=== PATIENT | female | born 1960 | race Caucasian/White ===

== ENCOUNTER → 2018-08-27 | Outpatient (CLI) | payer OTHER ==
[~2018-08-27] MED LIST: ACETAMINOPHEN325 M1 PO; ALPRAZOLAM 0.0.25 M1 PO; AUGMENTIN 875-1 EACH PO; CALCIUM 500+D1 EAC2 PO; CITRATE OF MAG296 ML PO; DULCOLAX5 MG PO; HYDROCODON-ACE1 EAC7 PO; HYDROCODON-ACE1 EACH PO; IBUPROFEN 200200 M1 PO; IBUPROFEN200 M2 PO; K-DUR 20 MEQ T20 MEQ PO; LOPERAMIDE 2 MG2 M1 PO; MAGNESIUM OXID200 MG PO; MELATONIN3 MG PO; MULTIVITAMINS1 EAC7 PO; PERCOCET 5-3251 EACH PO; ROCEPHIN 1 GM VL1 G1 IV; VITAMIN B-12500 MCG PO; VITCB500GO PO; XANAX 0.5 MG0.5 MG PO; ZOFRAN 4 MG ORAL4 MG DISSOLVE; ZOFRAN ODT4 MG PO; [UNRECOGNIZED DRUG - OTHER] PO
== END ==
LOC: HYPER 07:11
DX: T81.83XD Persistent postprocedural fistula, subsequent encounter (principal); L59.8 Other specified disorders of the skin and subcutaneous tissue related to radiation; L02.214 Cutaneous abscess of groin; L73.2 Hidradenitis suppurativa; F41.9 Anxiety disorder, unspecified; Z87.891 Personal history of nicotine dependence; Z86.718 Personal history of other venous thrombosis and embolism; Z85.048 Personal history of other malignant neoplasm of rectum, rectosigmoid junction, and anus; Z85.528 Personal history of other malignant neoplasm of kidney

== ENCOUNTER → 2018-09-10 | Outpatient (CLI) | payer OTHER | LOC: HYPER 07:05 | DX: T81.83XD Persistent postprocedural fistula, subsequent encounter (principal); L02.214 Cutaneous abscess of groin; L02.415 Cutaneous abscess of right lower limb; L59.8 Other specified disorders of the skin and subcutaneous tissue related to radiation; L73.2 Hidradenitis suppurativa; F41.9 Anxiety disorder, unspecified; Z87.891 Personal history of nicotine dependence; Z85.528 Personal history of other malignant neoplasm of kidney; Z85.048 Personal history of other malignant neoplasm of rectum, rectosigmoid junction, and anus; Z86.718 Personal history of other venous thrombosis and embolism; Y83.8 Other surgical procedures as the cause of abnormal reaction of the patient, or of later complication, without mention of misadventure at the time of the procedure ==

== ENCOUNTER → 2018-10-07 | Outpatient (CLI) | payer OTHER ==
[~2018-10-07] MED LIST changes: +NEURONTIN 300M300 M2 PO; +VITAMIN E400 UNIT PO
== END ==
LOC: HYPER 09-24 16:05
DX: T81.83XD Persistent postprocedural fistula, subsequent encounter (principal); L59.8 Other specified disorders of the skin and subcutaneous tissue related to radiation; L73.2 Hidradenitis suppurativa; L02.214 Cutaneous abscess of groin; L02.415 Cutaneous abscess of right lower limb; F41.9 Anxiety disorder, unspecified; Z87.891 Personal history of nicotine dependence; Z86.718 Personal history of other venous thrombosis and embolism; Z85.528 Personal history of other malignant neoplasm of kidney; Z85.048 Personal history of other malignant neoplasm of rectum, rectosigmoid junction, and anus; Y83.8 Other surgical procedures as the cause of abnormal reaction of the patient, or of later complication, without mention of misadventure at the time of the procedure

== ENCOUNTER → 2018-11-26 | Outpatient (CLI) | payer OTHER | LOC: HYPER 07:33 | DX: L02.214 Cutaneous abscess of groin (principal); L02.415 Cutaneous abscess of right lower limb; N76.4 Abscess of vulva; L59.8 Other specified disorders of the skin and subcutaneous tissue related to radiation; L73.2 Hidradenitis suppurativa; N73.9 Female pelvic inflammatory disease, unspecified; Z92.3 Personal history of irradiation; F41.9 Anxiety disorder, unspecified; Z87.891 Personal history of nicotine dependence; Z86.718 Personal history of other venous thrombosis and embolism; Z85.048 Personal history of other malignant neoplasm of rectum, rectosigmoid junction, and anus; Z85.528 Personal history of other malignant neoplasm of kidney; Y84.2 Radiological procedure and radiotherapy as the cause of abnormal reaction of the patient, or of later complication, without mention of misadventure at the time of the procedure ==

== ENCOUNTER → 2018-12-29 | Outpatient (CLI) | payer OTHER | LOC: HYPER 12-22 06:42 | DX: T81.83XD Persistent postprocedural fistula, subsequent encounter (principal); L02.214 Cutaneous abscess of groin; L02.415 Cutaneous abscess of right lower limb; L59.8 Other specified disorders of the skin and subcutaneous tissue related to radiation; L73.2 Hidradenitis suppurativa; N76.4 Abscess of vulva; N73.9 Female pelvic inflammatory disease, unspecified; Z92.3 Personal history of irradiation; Z87.891 Personal history of nicotine dependence; Z85.048 Personal history of other malignant neoplasm of rectum, rectosigmoid junction, and anus; Z85.528 Personal history of other malignant neoplasm of kidney; Z86.718 Personal history of other venous thrombosis and embolism; F41.9 Anxiety disorder, unspecified ==

== ENCOUNTER → 2019-03-12 | Outpatient (CLI) | payer OTHER | LOC: HYPER 02-24 14:59 | DX: L02.214 Cutaneous abscess of groin (principal); L02.415 Cutaneous abscess of right lower limb; L59.8 Other specified disorders of the skin and subcutaneous tissue related to radiation; L73.2 Hidradenitis suppurativa; N73.9 Female pelvic inflammatory disease, unspecified; F41.9 Anxiety disorder, unspecified; Z87.891 Personal history of nicotine dependence; Z85.048 Personal history of other malignant neoplasm of rectum, rectosigmoid junction, and anus; Z85.528 Personal history of other malignant neoplasm of kidney; Z86.718 Personal history of other venous thrombosis and embolism; Y84.2 Radiological procedure and radiotherapy as the cause of abnormal reaction of the patient, or of later complication, without mention of misadventure at the time of the procedure ==

== ENCOUNTER → 2019-04-14 | Outpatient (CLI) | payer OTHER | LOC: HYPER 04-08 06:50 | DX: L02.214 Cutaneous abscess of groin (principal); L02.415 Cutaneous abscess of right lower limb; L59.8 Other specified disorders of the skin and subcutaneous tissue related to radiation; L73.2 Hidradenitis suppurativa; N73.9 Female pelvic inflammatory disease, unspecified; F41.9 Anxiety disorder, unspecified; Z87.891 Personal history of nicotine dependence; Z85.528 Personal history of other malignant neoplasm of kidney; Z85.048 Personal history of other malignant neoplasm of rectum, rectosigmoid junction, and anus; Z86.718 Personal history of other venous thrombosis and embolism; Y84.2 Radiological procedure and radiotherapy as the cause of abnormal reaction of the patient, or of later complication, without mention of misadventure at the time of the procedure ==

== ENCOUNTER → 2019-04-28 | Outpatient (CLI) | payer OTHER | LOC: HYPER 06:54 | DX: T81.83XD Persistent postprocedural fistula, subsequent encounter (principal); L59.8 Other specified disorders of the skin and subcutaneous tissue related to radiation; L02.214 Cutaneous abscess of groin; L73.2 Hidradenitis suppurativa; N73.9 Female pelvic inflammatory disease, unspecified; F41.9 Anxiety disorder, unspecified; Z87.891 Personal history of nicotine dependence; Z92.3 Personal history of irradiation; Z85.048 Personal history of other malignant neoplasm of rectum, rectosigmoid junction, and anus; Z86.718 Personal history of other venous thrombosis and embolism; Y84.8 Other medical procedures as the cause of abnormal reaction of the patient, or of later complication, without mention of misadventure at the time of the procedure ==

== ENCOUNTER → 2019-05-12 | Outpatient (CLI) | payer OTHER | LOC: HYPER 04-28 11:07 | DX: T81.83XD Persistent postprocedural fistula, subsequent encounter (principal); L59.8 Other specified disorders of the skin and subcutaneous tissue related to radiation; L02.214 Cutaneous abscess of groin; L73.2 Hidradenitis suppurativa; N73.9 Female pelvic inflammatory disease, unspecified; F41.9 Anxiety disorder, unspecified; Z85.048 Personal history of other malignant neoplasm of rectum, rectosigmoid junction, and anus; Z85.53 Personal history of malignant neoplasm of renal pelvis; Z86.718 Personal history of other venous thrombosis and embolism; Z87.891 Personal history of nicotine dependence; Z92.3 Personal history of irradiation; Y84.2 Radiological procedure and radiotherapy as the cause of abnormal reaction of the patient, or of later complication, without mention of misadventure at the time of the procedure; Y83.8 Other surgical procedures as the cause of abnormal reaction of the patient, or of later complication, without mention of misadventure at the time of the procedure ==

== ENCOUNTER → 2019-06-03 | Outpatient (CLI) | payer OTHER | LOC: HYPER 05-25 06:18 | DX: T81.83XD Persistent postprocedural fistula, subsequent encounter (principal); L59.8 Other specified disorders of the skin and subcutaneous tissue related to radiation; L02.214 Cutaneous abscess of groin; L02.31 Cutaneous abscess of buttock; L73.2 Hidradenitis suppurativa; N73.9 Female pelvic inflammatory disease, unspecified; D64.9 Anemia, unspecified; F41.9 Anxiety disorder, unspecified; Z87.891 Personal history of nicotine dependence; Z92.3 Personal history of irradiation; Z85.048 Personal history of other malignant neoplasm of rectum, rectosigmoid junction, and anus; Z85.53 Personal history of malignant neoplasm of renal pelvis; Z86.718 Personal history of other venous thrombosis and embolism; Y83.8 Other surgical procedures as the cause of abnormal reaction of the patient, or of later complication, without mention of misadventure at the time of the procedure; Y84.2 Radiological procedure and radiotherapy as the cause of abnormal reaction of the patient, or of later complication, without mention of misadventure at the time of the procedure ==

== ENCOUNTER → 2019-06-23 | Outpatient (CLI) | payer OTHER | LOC: HYPER 06:52 | DX: L02.214 Cutaneous abscess of groin (principal); L02.415 Cutaneous abscess of right lower limb; L02.31 Cutaneous abscess of buttock; L73.2 Hidradenitis suppurativa; T81.83XD Persistent postprocedural fistula, subsequent encounter; L59.8 Other specified disorders of the skin and subcutaneous tissue related to radiation; N73.9 Female pelvic inflammatory disease, unspecified; F41.9 Anxiety disorder, unspecified; Z92.3 Personal history of irradiation; Z87.891 Personal history of nicotine dependence; Z86.718 Personal history of other venous thrombosis and embolism; Z85.528 Personal history of other malignant neoplasm of kidney; Z85.048 Personal history of other malignant neoplasm of rectum, rectosigmoid junction, and anus; Y84.2 Radiological procedure and radiotherapy as the cause of abnormal reaction of the patient, or of later complication, without mention of misadventure at the time of the procedure; Y83.8 Other surgical procedures as the cause of abnormal reaction of the patient, or of later complication, without mention of misadventure at the time of the procedure ==

== ENCOUNTER → 2019-07-21 | Outpatient (CLI) | payer OTHER | LOC: HYPER 06:49 | DX: T81.83XD Persistent postprocedural fistula, subsequent encounter (principal); L02.214 Cutaneous abscess of groin; L02.31 Cutaneous abscess of buttock; L73.2 Hidradenitis suppurativa; L59.8 Other specified disorders of the skin and subcutaneous tissue related to radiation; N73.9 Female pelvic inflammatory disease, unspecified; F41.9 Anxiety disorder, unspecified; Z87.891 Personal history of nicotine dependence; Z86.718 Personal history of other venous thrombosis and embolism; Z85.048 Personal history of other malignant neoplasm of rectum, rectosigmoid junction, and anus; Z92.3 Personal history of irradiation; Z85.528 Personal history of other malignant neoplasm of kidney; Y84.2 Radiological procedure and radiotherapy as the cause of abnormal reaction of the patient, or of later complication, without mention of misadventure at the time of the procedure ==